=== PATIENT | female | born 1950 | race Two or more races ===

== ENCOUNTER → 2016-08-31 | Outpatient (CLI) | payer MEDICARE, OTHER | LOC: BRMIMAGING 10:31 | PROVIDERS: ATTEND Family Medicine | DX: Z12.31 Encounter for screening mammogram for malignant neoplasm of breast (principal) | CPT/HCPCS: G0202 ==

== ENCOUNTER → 2016-09-07 | Outpatient (CLI) | payer OTHER | LOC: BRMIMAGING 09:53 | PROVIDERS: ATTEND Family Medicine | DX: Z13.820 Encounter for screening for osteoporosis (principal); M85.80 Other specified disorders of bone density and structure, unspecified site; M54.5 Low back pain; E07.9 Disorder of thyroid, unspecified; Z78.0 Asymptomatic menopausal state; Z82.62 Family history of osteoporosis ==

== ENCOUNTER → 2017-09-06 | Outpatient (CLI) | payer OTHER | LOC: BRMIMAGING 07:38 | PROVIDERS: ATTEND Family Medicine | DX: Z12.31 Encounter for screening mammogram for malignant neoplasm of breast (principal) ==

== ENCOUNTER → 2018-09-06 | Outpatient (CLI) | payer OTHER | LOC: BRMIMAGING 14:38 | PROVIDERS: ATTEND Family Medicine | DX: Z12.31 Encounter for screening mammogram for malignant neoplasm of breast (principal) ==